=== PATIENT | male | born 1965 | race Caucasian/White ===

== ENCOUNTER 2020-04-09 02:18 | Outpatient (CLI) | payer OTHER, SELFPAY ==
[2020-04-09 17:03] LABS: SARS-CoV-2 RNA PCR Negative
== END 2020-04-09 02:19 | disposition home or self-care (01) ==
LOC: ANHCOVIDDT 02:19
PROVIDERS: PCP Internal Medicine; Visit Provider Internal Medicine Gastroenterology
DX: Z01.812 Encounter for preprocedural laboratory examination (principal); Z20.828 Contact with and (suspected) exposure to other viral communicable diseases
CPT/HCPCS: 87635; C9803; U0003

== ENCOUNTER 2020-04-11 00:33 | Day surgery (SDC) | payer OTHER, SELFPAY ==
[2020-04-05 11:50] VITALS: BMI 29.0
[2020-04-11 06:27] VITALS: BP 135/89; PULSE 53; RESP 18; TEMP 36.6; O2SAT 99
[2020-04-11] MEDS: LACTATED RINGERS 1,000 ML 150 ML IV CONT (06:38)
--- NOTE | 2020-04-11 06:57 | PM.HPGS ---
History of Present Illness History of Present Illness Consent: Risks, benefits, and alternatives have been discussed and questions answered. Patient agrees to proceed with procedure. Chief complaint: Neoplasm Screening Narrative: Camilo Issa is a 54 year old W male Referred for screening colonoscopy secondary to history of colonic polyps. Last colonoscopy was 3 years ago at which time several polyps were removed 1 was a serrated adenoma. Patient is asymptomatic. No family history of colon cancer. [facility] Past Medical History Medical History (Updated 04/11/20 @ 07:01 by Magdaleno Fink MD) Depression Dyslipidemia Fracture of finger of right hand Hypertension Sleep apnea Social History Social History Smoking status: Never smoker Alcohol intake: never Substance use: never Living arrangements: with friend(s) Spiritual care concerns: No Meds Home Medications and Allergies Home Medications Medication Instructions Recorded Confirmed Type aripiprazole 2 mg PO HS 04/05/20 04/11/20 History atorvastatin 10 mg PO HS 04/05/20 04/05/20 History escitalopram oxalate 20 mg PO DAILY 04/05/20 04/05/20 History fexofenadine-pseudoephedrine 1 tablet PO QAM 04/05/20 04/05/20 History [Alicia-D 24 Hour] labetalol 300 mg PO BID 04/05/20 04/05/20 History lisinopril 20 mg PO DAILY 04/05/20 04/05/20 History lithium carbonate 600 mg PO HS 04/05/20 04/05/20 History Allergies Allergy/AdvReac Type Severity Reaction Status Date / Time coconut Allergy Swelling Verified 04/11/20 06:22 of Lip/Tongue/Throat Vital Signs Vital Signs - 24 hr 04/11/20 06:27 Temperature 36.6 C Pulse Rate 53 L Respiratory Rate 18 Blood Pressure 135/89 Pulse Oximetry 99 Exam Const: Orientation/consciousness: patient oriented x3 Resp: Auscultation: clear to auscultation bilaterally Cardio: Rate: regular rate Rhythm: regular rhythm Heart sounds: no murmurs GI: GI Palp: Yes Soft to palpation, No Tenderness to palpation present (GI), Yes No hepatosplenomegaly present and No Palpable mass present Auscultation: normal bowel sounds Neuro: General: patient oriented x3 and no focal motor deficits Extrem: General: no pedal edema Assessment and Plan Additional Plan screening colonoscopy secondary history of colonic polyps
--- NOTE | 2020-04-11 07:15 | WPDANESEPPF ---
Anes - Initial Pre Proc Eval Procedure: Operation Date: 04/11/20 07:30 Proposed Procedures p Screening Colonoscopy - Magdaleno Fink MD Date/Time: 04/11/20 07:15 Surgeon: Magdaleno Fink MD Pre Op Diagnosis: Neoplasm Screening Patient Data Age: 54 Gender: M Height: 1.7 m Weight: 84.4 kg Last Vital Signs Temp 36.6 C 04/11/20 06:27 Pulse 53 L 04/11/20 06:27 Resp 18 04/11/20 06:27 BP 135/89 04/11/20 06:27 Pulse Ox 99 04/11/20 06:27 Allergies Allergy/AdvReac Type Severity Reaction Status Date / Time coconut Allergy Swelling Verified 04/11/20 06:22 of Lip/Tongue/Throat Home Medications Medication Instructions Recorded Confirmed Type aripiprazole 2 mg PO HS 04/05/20 04/11/20 History atorvastatin 10 mg PO HS 04/05/20 04/05/20 History escitalopram oxalate 20 mg PO DAILY 04/05/20 04/05/20 History fexofenadine-pseudoephedrine 1 tablet PO QAM 04/05/20 04/05/20 History [Alicia-D 24 Hour] labetalol 300 mg PO BID 04/05/20 04/05/20 History lisinopril 20 mg PO DAILY 04/05/20 04/05/20 History lithium carbonate 600 mg PO HS 04/05/20 04/05/20 History Patient hx anesthesia problems: none Family hx anesthesia problems: none [facility] Past Medical History Medical History (Updated 04/11/20 @ 07:16 by Fuad Larry MD) CVA (cerebral vascular accident) Depression Dyslipidemia Fracture of finger of right hand Hypertension Sleep apnea Social History Social History Smoking status: Never smoker Alcohol intake: never Substance use: never Living arrangements: with friend(s) Spiritual care concerns: No Anes - Eval Final PreProcedure Day of Procedure 04/11/20 07:15 Patient weight: overweight Heart: regular rate and rhythm Lungs: clear to auscultation and normal air movement Airway: Mallampati scale class II Neurological: alert and oriented Last oral intake: >/= 8 hours ASA classification: III Emergent: no Anesthetic plan: proceed Anesthesia type and monitoring: general GIVS Informed Consent: The patient's anesthetic plan and its attendant risks and benefits were discussed with the patient/family/POA. Questions were solicited and answers provided to the satisfaction of the patient/family/POA.
[2020-04-11 08:00] VITALS: BP 117/73; PULSE 64; RESP 16; O2SAT 99
[2020-04-11 08:10] VITALS: BP 107/76; PULSE 62; RESP 24; O2SAT 98
[2020-04-11 08:20] VITALS: BP 125/82; PULSE 62; RESP 20; O2SAT 98
== END 2020-04-11 08:47 | disposition home or self-care (01) ==
PROVIDERS: PCP Internal Medicine; Visit Provider Internal Medicine Gastroenterology
PROC: 0DJD8ZZ Inspection of Lower Intestinal Tract, Via Natural or Artificial Opening Endoscopic (ICD-10-PCS; CPT 45378; principal; 2020-04-11 07:30)
DX: Z12.11 Encounter for screening for malignant neoplasm of colon (principal); K63.5 Polyp of colon; K64.0 First degree hemorrhoids; K64.4 Residual hemorrhoidal skin tags; I10 Essential (primary) hypertension; E78.5 Hyperlipidemia, unspecified; G47.30 Sleep apnea, unspecified; F32.9 Major depressive disorder, single episode, unspecified; Z86.73 Personal history of transient ischemic attack (TIA), and cerebral infarction without residual deficits
CPT/HCPCS: 45380; 87635; 88305; C9803; J2704; J7120; U0003

== ENCOUNTER 2023-10-06 13:03 | Outpatient (CLI) | payer OTHER, SELFPAY ==
--- NOTE | 2023-10-06 14:30 | NEURO_ITS ---
Impression: # Complains of numbness of hands. Non-diabetic. # Bilateral Carpal Tunnel Syndrome, right more than left. # No ulnar neuropathy. # Normal needle/EMG exam. Nerve Conduction Studies Anti Sensory Summary Table Stim Site NR Peak (ms) P-T Amp (?V) Site1 Site2 Delta-P (ms) Dist (cm) Sky (m/s) Left Median Anti Sensory (2-3nd Digit) Wrist 3.5 41.7 Wrist 2-3nd Digit 3.5 14.0 40 Wrist 3.5 41.6 Wrist 2-3nd Digit 3.5 14.0 40 Right Median Anti Sensory (2-3nd Digit) Wrist 3.5 40.6 Wrist 2-3nd Digit 3.5 14.0 40 Wrist 3.4 28.9 Wrist 2-3nd Digit 3.5 14.0 40 Left Radial Anti Sensory (Base 1st Digit) Wrist 2.2 20.6 Wrist Base 1st Digit 2.2 0.0 Right Radial Anti Sensory (Base 1st Digit) Wrist 2.8 13.7 Wrist Base 1st Digit 2.8 0.0 Left Ulnar Anti Sensory (5th Digit) Wrist 2.3 72.5 Wrist 5th Digit 2.3 14.0 61 Right Ulnar Anti Sensory (5th Digit) Wrist 2.2 49.2 Wrist 5th Digit 2.2 14.0 64 Motor Summary Table Stim Site NR Onset (ms) O-P Amp (mV) Site1 Site2 Delta-0 (ms) Dist (cm) Sky (m/s) Left Median Motor (Abd Poll Brev) Wrist 3.4 4.3 Elbow Wrist 5.0 30.0 60 Elbow 8.4 6.1 Right Median Motor (Abd Poll Brev) Wrist 4.1 1.3 Elbow Wrist 5.1 29.0 57 Elbow 9.2 3.9 Left Ulnar Motor (Abd Dig Minimi) Wrist 2.3 6.4 A Elbow Wrist 4.6 27.0 59 A Elbow 6.9 6.0 Right Ulnar Motor (Abd Dig Minimi) Wrist 2.7 7.8 A Elbow Wrist 5.1 29.0 57 A Elbow 7.8 6.2 F Wave Studies NR F-Lat (ms) L-R F-Lat (ms) Left Median (Mrkrs) (Abd Poll Brev) 27.14 1.81 Right Median (Mrkrs) (Abd Poll Brev) 28.95 1.81 Left Ulnar (Mrkrs) (Abd Dig Min) 27.50 0.19 Right Ulnar (Mrkrs) (Abd Dig Min) 27.31 0.19 EMG Side Muscle Nerve Root Ins Act Fibs Amp Dur Recrt Comment Right 1stDorInt Ulnar C8-T1 Nml Nml Nml Nml Nml Right Ext Indicis Radial (Post Int) C7-8 Nml Nml Nml Nml Nml Right Ext Digitorum Radial (Post Int) C7-8 Nml Nml Nml Nml Nml Right BrachioRad Radial C5-6 Nml Nml Nml Nml Nml Right PronatorTeres Median C6-7 Nml Nml Nml Nml Nml Right Abd Poll Brev Median C8-T1 Nml Nml Nml Nml Nml Right ABD Dig Min Ulnar C8-T1 Nml Nml Nml Nml Nml Left 1stDorInt Ulnar C8-T1 Nml Nml Nml Nml Nml Left Ext Indicis Radial (Post Int) C7-8 Nml Nml Nml Nml Nml Left Ext Digitorum Radial (Post Int) C7-8 Nml Nml Nml Nml Nml Left BrachioRad Radial C5-6 Nml Nml Nml Nml Nml Left PronatorTeres Median C6-7 Nml Nml Nml Nml Nml Left Abd Poll Brev Median C8-T1 Nml Nml Nml Nml Nml Left ABD Dig Min Ulnar C8-T1 Nml Nml Nml Nml Nml MTDD
== END 2023-10-06 13:04 | disposition home or self-care (01) ==
PROVIDERS: PCP Internal Medicine; Visit Provider Internal Medicine
DX: G56.03 Carpal tunnel syndrome, bilateral upper limbs (principal)
CPT/HCPCS: 95886; 95911

== ENCOUNTER 2024-01-28 12:34 | Outpatient (CLI) | payer OTHER, SELFPAY ==
[2024-01-28 16:09] LABS: Lithium 0.6 mmol/L (0.6-1.2)
== END 2024-01-28 12:35 | disposition home or self-care (01) ==
PROVIDERS: Anesthesiology; PCP Internal Medicine; Visit Provider Plastic Surgery
DX: Z79.899 Other long term (current) drug therapy (principal); Z01.818 Encounter for other preprocedural examination
CPT/HCPCS: 36415; 80178

== ENCOUNTER 2024-02-02 02:59 | Day surgery (SDC) | payer OTHER, SELFPAY ==
[2023-12-31 09:37] VITALS: BMI 28.2
--- NOTE | 2023-12-31 10:37 | PC.NURSE ---
Report to the Outpatient Waiting Room, entrance under the green pavilion located off [facility], at time _0615_ on date _[id number]_. Planned Procedure Time: _0815_. Time changes happen often and if your time is changed the preop area will call you the afternoon before. - You and your visitor will be asked to self-screen and do not enter if you have any COVID symptoms. - A mask is optional within the hospital at this time. - No food or drink from midnight until time of surgery Take the following medications with a SIP of water the morning of surgery: ____Escitalopram and Labetalol DO NOT STOP ANY OF YOUR OTHER PRESCRIPTION MEDICATIONS PRIOR TO SURGERY ?EXCEPT THE FOLLOWING Medications to discontinue per physician None Date to take last dose Please no make-up, nail cape verdean, hairspray, perfume, deodorant, or body powder the day of surgery. No jewelry (including any body piercings) or valuables the day of surgery, leave them at home. Please take a shower or bath the night before, or the morning of, surgery with an antibacterial soap. Wear comfortable, loose fitting clothing. - Jewelry must be removed prior to entering the operating room. Rings and piercings that are not removed may be cut off. - The hospital will not accept responsibility for valuables. - Please leave all valuables, including medications, at home the day of surgery. If you are going home after surgery, a licensed special events driver must drive you home. - NO public transportation without another adult if you receive anesthesia. - We recommend that an adult stay with you for 24 hours following discharge. - We also recommend that you do not drive, make important decision, drink alcoholic beverages, or take any drugs that were not prescribed by your health care provider for at least 24 hours after your discharge time. Follow any additional instructions given to you from your surgeon. If you or anyone in your household have experienced Covid symptoms in the past week, please notify your surgeon or the nurse liaison at the phone number below for possible testing. Telephone instructions given to _Chris__and asked if any additional questions and then verbalized understanding. Patient advised to call surgeon office or pre surgery nurse liaison [phone] if any additional questions.
--- NOTE | 2024-01-26 15:40 | PC.NURSE ---
Report to the Outpatient Waiting Room, entrance under the green pavilion located off [facility], at time _0600_ on date _[id number]_. Planned Procedure Time: _0730_. Time changes happen often and if your time is changed the preop area will call you the afternoon before. - You and your visitor will be asked to self-screen and do not enter if you have any COVID symptoms. - A mask is optional within the hospital at this time. - No food or drink from midnight until time of surgery Take the following medications with a SIP of water the morning of surgery: ____Escitalopram and Labetolol DO NOT STOP ANY OF YOUR OTHER PRESCRIPTION MEDICATIONS PRIOR TO SURGERY ?EXCEPT THE FOLLOWING Medications to discontinue per physician None Date to take last dose Please no make-up, nail maltese, hairspray, perfume, deodorant, or body powder the day of surgery. No jewelry (including any body piercings) or valuables the day of surgery, leave them at home. Please take a shower or bath the night before, or the morning of, surgery with an antibacterial soap. Wear comfortable, loose fitting clothing. - Jewelry must be removed prior to entering the operating room. Rings and piercings that are not removed may be cut off. - The hospital will not accept responsibility for valuables. - Please leave all valuables, including medications, at home the day of surgery. If you are going home after surgery, a licensed auto transport driver must drive you home. - NO public transportation without another adult if you receive anesthesia. - We recommend that an adult stay with you for 24 hours following discharge. - We also recommend that you do not drive, make important decision, drink alcoholic beverages, or take any drugs that were not prescribed by your health care provider for at least 24 hours after your discharge time. Follow any additional instructions given to you from your surgeon. If you or anyone in your household have experienced Covid symptoms in the past week, please notify your surgeon or the nurse liaison at the phone number below for possible testing. Telephone instructions given to __Chris____and asked if any additional questions and then verbalized understanding. Patient advised to call surgeon office or pre surgery nurse liaison [phone] if any additional questions.
[2024-02-02 06:12] VITALS: BP 124/79; PULSE 63; RESP 18; TEMP 36.3; O2SAT 96
[2024-02-02] MEDS: LACTATED RINGERS 1,000 ML 30 ML IV CONT (06:20)
--- NOTE | 2024-02-02 06:45 | PM.HPGS ---
History of Present Illness History of Present Illness Chief complaint: right carpal tunnel syndrome Narrative: Patient seen and examined in pre-operative holding area. No interval change in medical history or symptoms. Patient recalls previous discussion of benefits and alternatives to procedure. Continues to desire to proceed with right endoscopic possible open carpal tunnel release. Reviewed procedure, post-op expectations and risks including but not limited to bleeding, infection, injury to tendon/nerve/vessel, decreased hand function, stiffness, RSD, no change or worsening of symptoms. I discussed the possible use of assistants and their participation in the case. Patient stated understanding and signed the consent form wishing to proceed. Review of Systems Review of Systems: All systems reviewed & are unremarkable except as noted in HPI and below PMFSH Past Medical History Medical History CVA (cerebral vascular accident) Depression Dyslipidemia Fracture of finger of right hand Hypertension Sleep apnea Social History Social History Smoking status: Never smoker Alcohol intake: never Substance use: never Living arrangements: with family Spiritual care concerns: No Meds Home Medications and Allergies Home Medications Medication Instructions Recorded Confirmed Type aripiprazole 2 mg tablet 2 mg PO HS 04/05/20 02/02/24 History atorvastatin 10 mg tablet 10 mg PO HS 04/05/20 02/02/24 History escitalopram oxalate 20 mg tablet 20 mg PO DAILY 04/05/20 02/02/24 History fexofenadine-pseudoephedrine ER 1 tablet PO QAM 04/05/20 02/02/24 History 180 mg-240 mg tablet,ext.release 24 hr (Alicia-D 24 Hour) labetalol 300 mg tablet 300 mg PO BID 04/05/20 02/02/24 History lithium carbonate 300 mg tablet 600 mg PO HS 04/05/20 02/02/24 History Allergies Allergy/AdvReac Type Severity Reaction Status Date / Time coconut Allergy Swelling Verified 02/02/24 06:23 of Lip/Tongue/Throat Vital Signs Vital Signs - 24 hr 02/02/24 06:12 Temperature 36.3 C L Pulse Rate 63 Respiratory Rate 18 Blood Pressure 124/79 Pulse Oximetry 96 Oxygen Delivery Room Air Exam Narrative: unchnaged Assessment and Plan Assessment and plan (1) Bilateral carpal tunnel syndrome: Code(s): G56.03 - Carpal tunnel syndrome, bilateral upper limbs Status: Acute Assessment and Plan: cont as above
--- NOTE | 2024-02-02 06:46 | W.PM.PROC2 ---
Procedure Note - Detailed Date of Procedure 02/02/24 Pre-op Diagnosis right carpal tunnel syndrome Post-op Diagnosis Same Procedure Performed right ectr Surgeon Vivian Gramajo MD Anesthesia MAC Description of Procedure INFORMED CONSENT: The patient was seen and examined and marked in the pre-op area.? The patient signed the consent form. PROCEDURE IN DETAIL:The patient taken back to OR on the stretcher in supine position. Time out performed with anesthesia, surgeon and staff agreeing on patient's name site and surgery to be performed SCDs were placed on the lower extremities and inflated. A tourniquet was placed on {right} upper extremity and antibiotics given IV After anesthesia administered sedation I injected {5}cc 1%lido with epi and 0.5% marcaine plain at the operative site The?{right upper extremity}?was prepped and draped in sterile fashion the??{right upper extremity} was? exsanguinated with Esmarch bandage and tourniquet inflated to 250mmHg I made a transverse incision in the {right} volar distal wrist crease through skin and dermis with 15 blade scalpel.? Littler scissors spread down to antebrachial fascia. A small incision was made in antebrachial fascia allowing access to Carpal tunnel. I proceeded with sequential dilation staying in line with the ring finger and hugging the hook of the hamate.? I then used the synovial elevator to free any adhesions from the underside of the transverse carpal ligament. Next I was able to insert the Microaire endoscopic carpal tunnel device with direct visualization of the transverse fibers on the monitor and proceeded with complete segmental retrograde release of the ligament in its entirety.? I irrigated with normal saline and closed with 4-0 monocryl for dermis and subcuticular closure. A dressing of Dermabond, 4x4, gala, and a volar splint was applied for patient safety, security, and comfort and secured with an alejandro bandage after the tourniquet was let down noting the hand was warm and well perfused. The patient was then awaken from anesthesia and transferred to the recovery room in stable condition.? Complications - none EBL- 0cc Disposition - home in stable conditions AM Billing Surgery - Charge Forward: Surgery Billing ([id number])
--- NOTE | 2024-02-02 07:07 | P.PNAN_ITS ---
Anes - Initial Pre Proc Eval Procedure: Operation Date: 02/02/24 07:30 Proposed Procedures p Right Endoscopic Carpal Tunnel Release, Possible Open - Vivian Gramajo MD Date/Time: 02/02/24 07:07 Surgeon: Vivian Gramajo MD Pre Op Diagnosis: right carpal tunnel syndrome Patient Data Age: 58 Gender: M Height: 1.7 m Weight: 83.9 kg Last Vital Signs Temp 36.3 C L 02/02/24 06:12 Pulse 63 02/02/24 06:12 Resp 18 02/02/24 06:12 BP 124/79 02/02/24 06:12 Pulse Ox 96 02/02/24 06:12 O2 Del Method Room Air 02/02/24 06:12 Allergies Allergy/AdvReac Type Severity Reaction Status Date / Time coconut Allergy Swelling Verified 02/02/24 06:23 of Lip/Tongue/Throat Home Medications Medication Instructions Recorded Confirmed Type aripiprazole 2 mg tablet 2 mg PO HS 04/05/20 02/02/24 History atorvastatin 10 mg tablet 10 mg PO HS 04/05/20 02/02/24 History escitalopram oxalate 20 mg tablet 20 mg PO DAILY 04/05/20 02/02/24 History fexofenadine-pseudoephedrine ER 1 tablet PO QAM 04/05/20 02/02/24 History 180 mg-240 mg tablet,ext.release 24 hr (Alicia-D 24 Hour) labetalol 300 mg tablet 300 mg PO BID 04/05/20 02/02/24 History lithium carbonate 300 mg tablet 600 mg PO HS 04/05/20 02/02/24 History Patient hx anesthesia problems: none Family hx anesthesia problems: none Results Review: All pre-operative results and documents have been reviewed as part of the pre- operative evaluation. [facility] Past Medical History Medical History CVA (cerebral vascular accident) Depression Dyslipidemia Fracture of finger of right hand Hypertension Sleep apnea Social History Social History Smoking status: Never smoker Alcohol intake: never Substance use: never Living arrangements: with family Spiritual care concerns: No Anes - Eval Final PreProcedure Day of Procedure 02/02/24 07:07 Patient weight: overweight Heart: regular rate and rhythm Lungs: clear to auscultation Airway: Mallampati scale class II Neurological: alert and oriented Last oral intake: >/= 8 hours ASA classification: III Emergent: no Anesthetic plan: proceed Anesthesia type and monitoring: general GIVS and standard monitoring Results Review: All pre-operative results and documents have been reviewed as part of the pre- operative evaluation. Informed Consent: The patient's anesthetic plan and its attendant risks and benefits were discussed with the patient/family/POA. Questions were solicited and answers provided to the satisfaction of the patient/family/POA.
[2024-02-02] MEDS: ceFAZolin 2 GM/D5W 50 ML 2 GM/50 ML BAG IVPB (07:25)
[2024-02-02] MEDS: LIDO 1%/EPINEPHRINE 1:100,000 50 ML VIAL 10 ML INFILTRATE (07:31)
[2024-02-02 07:45] VITALS: BP 108/73; PULSE 67; RESP 14; O2SAT 93
[2024-02-02 08:10] VITALS: BP 107/72; PULSE 63; RESP 14; O2SAT 94
[2024-02-02 08:40] VITALS: BP 106/74; PULSE 56; RESP 16
== END 2024-02-02 08:56 | disposition home or self-care (01) ==
PROVIDERS: PCP Internal Medicine; Visit Provider Plastic Surgery
PROC: 01N54ZZ Release Median Nerve, Percutaneous Endoscopic Approach (ICD-10-PCS; CPT 29848; principal; 2024-02-02 07:30)
DX: G56.01 Carpal tunnel syndrome, right upper limb (principal); I10 Essential (primary) hypertension; E78.5 Hyperlipidemia, unspecified; G47.30 Sleep apnea, unspecified; Z86.73 Personal history of transient ischemic attack (TIA), and cerebral infarction without residual deficits
CPT/HCPCS: 29848; 36415; 80178; J0690; J2250; J2405; J3010; J7120

== ENCOUNTER 2024-04-22 09:16 | Outpatient (CLI) | payer OTHER, SELFPAY ==
--- NOTE | 2024-04-22 09:31 | ECG_ITS ---
Test Date: 2024-04-22 09:43:26 Measurements Intervals [place] Rate: 57 P: 11 UT: 150 QRS: 11 QRSD: 99 T: 26 QT: 469 QTc: 458 Interpretive Statements SINUS BRADYCARDIA INCOMPLETE RIGHT BUNDLE BRANCH BLOCK BASELINE ARTIFACT- II, III, AVR, AVF BORDERLINE ECG No previous ECG available for comparison Electronically Signed On 04-22-2024 10:04:19 CDT by Donald Dukes D.O.
== END 2024-04-22 09:17 | disposition home or self-care (01) ==
PROVIDERS: PCP Internal Medicine; Visit Provider Anesthesiology
DX: Z01.810 Encounter for preprocedural cardiovascular examination (principal); I45.10 Unspecified right bundle-branch block; I10 Essential (primary) hypertension
CPT/HCPCS: 93005

== ENCOUNTER 2024-04-26 02:54 | Day surgery (SDC) | payer OTHER, SELFPAY ==
[2024-04-21 10:57] VITALS: BMI 28.7
--- NOTE | 2024-04-21 11:01 | PC.NURSE ---
Report to the Outpatient Waiting Room, entrance under the green pavilion located off [facility], at time _0615_ on date _[id number]_. Planned Procedure Time: _0815_.? Time changes happen often and if your time is changed the preop area will call you the afternoon before. - You and your visitor will be asked to self-screen and do not enter if you have any COVID symptoms. Please call surgeon if you need to reschedule. - A mask is optional within the hospital at this time. - No food or drink from midnight until time of surgery and no smoking Take only the following medications with a SIP of water on the morning of surgery: ___Amlodipine, Bupropion, Labetolol and Escitalopram___ DO NOT STOP ANY OF YOUR OTHER PRESCRIPTION MEDICATIONS PRIOR TO SURGERY EXCEPT THE FOLLOWING Medications to discontinue per physician ____None___ Please no make-up, nail moroccan, hairspray, perfume, deodorant, or body powder the day of surgery.? No jewelry (including any body piercings) or valuables the day of surgery, leave them at home.? Please take a shower or bath the night before, or the morning of, surgery with an antibacterial soap.? Wear comfortable, loose fitting clothing.? - Jewelry must be removed prior to entering the operating room.? Rings and piercings that are not removed may be cut off. - The hospital will not accept responsibility for valuables.? - Please leave all valuables, including medications, at home the day of surgery. If you are going home after surgery, a licensed hog driver must drive you home.? - NO public transportation without another adult if you receive anesthesia. - We recommend that an adult stay with you for 24 hours following discharge. - We also recommend that you do not drive, make important decision, drink alcoholic beverages, or take any drugs that were not prescribed by your health care provider for at least 24 hours after your discharge time. Follow any additional instructions given to you from your surgeon. Telephone instructions given to _Yo__and asked if any additional questions and then verbalized understanding. Patient advised to call surgeon office or pre surgery nurse liaison [phone] if any additional questions.
[2024-04-26 06:45] VITALS: BP 122/85; PULSE 57; RESP 16; TEMP 36.4; O2SAT 96
[2024-04-26] MEDS: LACTATED RINGERS 1,000 ML 30 ML IV CONT (06:45)
--- NOTE | 2024-04-26 07:04 | WPDANESEPPF ---
Anes - Initial Pre Proc Eval Procedure: Operation Date: 04/26/24 08:15 Proposed Procedures p Left Endoscopic Carpal Tunnel Release, Possible Open - Vivian Gramajo MD Date/Time: 04/26/24 07:04 Surgeon: Vivian Gramajo MD Pre Op Diagnosis: Left Carpal Tunnel Syndrome Patient Data Age: 58 Gender: M Height: 1.7 m Weight: 83.2 kg Allergies Allergy/AdvReac Type Severity Reaction Status Date / Time coconut Allergy Swelling Verified 04/21/24 10:53 of Lip/Tongue/Throat Home Medications Medication Instructions Recorded Confirmed Type atorvastatin 10 mg tablet 10 mg PO HS 04/05/20 04/21/24 History escitalopram oxalate 20 mg tablet 20 mg PO DAILY 04/05/20 04/21/24 History fexofenadine-pseudoephedrine ER 1 tablet PO QAM 04/05/20 04/21/24 History 180 mg-240 mg tablet,ext.release 24 hr (Alicia-D 24 Hour) labetalol 300 mg tablet 300 mg PO BID 04/05/20 04/21/24 History lithium carbonate 300 mg tablet 600 mg PO HS 04/05/20 04/21/24 History tramadol 50 mg tablet 50 mg PO Q6H PRN pain #14 tabs 02/02/24 04/21/24 Rx amlodipine 5 mg tablet 5 mg PO DAILY 04/21/24 04/21/24 History bupropion HCl 300 mg 24 hr tablet, 300 mg PO DAILY 04/21/24 04/21/24 History extended release Patient hx anesthesia problems: none Family hx anesthesia problems: none Results Review: All pre-operative results and documents have been reviewed as part of the pre-operative evaluation. [facility] Past Medical History Medical History CVA (cerebral vascular accident) Depression Dyslipidemia Fracture of finger of right hand Hypertension Sleep apnea Surgical History Surgical History (Updated 04/26/24 @ 07:04 by Ranulfo Arora MD) History of carpal tunnel surgery Social History Social History Smoking status: Never smoker Alcohol intake: never Substance use: never Living arrangements: with family Spiritual care concerns: No Anes - Eval Final PreProcedure Day of Procedure 04/26/24 07:04 Patient weight: overweight Heart: regular rate and rhythm Lungs: clear to auscultation Airway: Mallampati scale class II Neurological: alert and oriented Last oral intake: >/= 8 hours ASA classification: III Emergent: no Anesthetic plan: proceed Anesthesia type and monitoring: general GIVS and standard monitoring Results Review: All pre-operative results and documents have been reviewed as part of the pre-operative evaluation. Informed Consent: The patient's anesthetic plan and its attendant risks and benefits were discussed with the patient/family/POA. Questions were solicited and answers provided to the satisfaction of the patient/family/POA.
--- NOTE | 2024-04-26 07:04 | WPDHPUPDATE1 ---
History and Physical Update Update Date/Time: 04/26/24 07:04 Patient seen and examined in pre-operative holding area. No interval change in medical history or symptoms. Patient recalls previous discussion of benefits and alternatives to procedure. Continues to desire to proceed with left endoscopic possible open carpal tunnel release . Reviewed procedure, post-op expectations and risks including but not limited to bleeding, infection, injury to tendon/nerve/vessel, decreased hand function, stiffness, RSD, no change or worsening of symptoms. I discussed the possible use of assistants and their participation in the case. Patient stated understanding and signed the consent form wishing to proceed.
--- NOTE | 2024-04-26 07:05 | W.PM.PROC2 ---
Procedure Note - Detailed Date of Procedure 04/26/24 Pre-op Diagnosis Left Carpal Tunnel Syndrome Post-op Diagnosis Same Procedure Performed left ectr Surgeon Vivian Gramajo MD Community Outreach Advocate kameron mendiola pa-c Anesthesia MAC Description of Procedure INFORMED CONSENT: The patient was seen and examined and marked in the pre-op area.? The patient signed the consent form. PROCEDURE IN DETAIL:The patient taken back to OR on the stretcher in supine position. Time out performed with anesthesia, surgeon and staff agreeing on patient's name site and surgery to be performed SCDs were placed on the lower extremities and inflated. A tourniquet was placed on left} upper extremity and antibiotics given IV After anesthesia administered sedation I injected {5}cc 1%lido with epi and 0.5% marcaine plain at the operative site The?{left upper extremity}?was prepped and draped in sterile fashion the??{left upper extremity} was? exsanguinated with Esmarch bandage and tourniquet inflated to 250mmHg I made a transverse incision in the {left} volar distal wrist crease through skin and dermis with 15 blade scalpel.? Littler scissors spread down to antebrachial fascia. A small incision was made in antebrachial fascia allowing access to Carpal tunnel. I proceeded with sequential dilation staying in line with the ring finger and hugging the hook of the hamate.? I then used the synovial elevator to free any adhesions from the underside of the transverse carpal ligament. Next I was able to insert the Microaire endoscopic carpal tunnel device with direct visualization of the transverse fibers on the monitor and proceeded with complete segmental retrograde release of the ligament in its entirety.? I irrigated with normal saline and closed with 4-0 monocryl for dermis and subcuticular closure. A dressing of Dermabond, 4x4, gala, and a volar splint was applied for patient safety, security, and comfort and secured with an alejandro bandage after the tourniquet was let down noting the hand was warm and well perfused. The patient was then awaken from anesthesia and transferred to the recovery room in stable condition.? Complications - none EBL- 0cc Disposition - home in stable conditions Kameron Mendiola PA-C was essential for positioining, retraction, closure and dressing placement [facility] [place] Billing Surgery - Charge Forward: Surgery Billing ([id number] for kameron)
[2024-04-26] MEDS: LIDO 1%/EPINEPHRINE 1:100,000 50 ML VIAL 10 ML INFILTRATE (08:02)
[2024-04-26] MEDS: ceFAZolin 2 GM/D5W 50 ML 2 GM/50 ML BAG IVPB (08:08)
[2024-04-26 08:32] VITALS: BP 98/63; PULSE 59; RESP 14
[2024-04-26 09:00] VITALS: BP 97/67; PULSE 57; RESP 20
[2024-04-26 09:14] VITALS: BP 107/73; PULSE 59; RESP 20
== END 2024-04-26 09:24 | disposition home or self-care (01) ==
PROVIDERS: PCP Internal Medicine; Visit Provider Plastic Surgery
PROC: 01N54ZZ Release Median Nerve, Percutaneous Endoscopic Approach (ICD-10-PCS; CPT 29848; principal; 2024-04-26 08:15)
DX: G56.02 Carpal tunnel syndrome, left upper limb (principal); E78.5 Hyperlipidemia, unspecified; I10 Essential (primary) hypertension; G47.30 Sleep apnea, unspecified; F32.A Depression, unspecified; Z86.73 Personal history of transient ischemic attack (TIA), and cerebral infarction without residual deficits
CPT/HCPCS: 29848; 93005; J0690; J2704; J3010; J7120

== ENCOUNTER 2025-01-02 04:59 | Emergency (ER) | payer OTHER, SELFPAY ==
[2025-01-02] VITALS (11 sets, daily range): BP systolic 140–156; BP diastolic 87–105; PULSE 77; RESP 16; TEMP 37.1; O2SAT 94–96
--- OUTSIDE RECORDS SUMMARY | 2025-01-02 05:02 | XMS_ITS | Clinical Summary ---
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 Gender Identity Not on file Sexual Orientation Not on file Plan of Treatment Health Maintenance Due Date Last Done Comments Hepatitis C Virus (HCV) Screening 1966 TdaP Immunization 1966 Hepatitis B Immunization (1 of 3 - 19+ 3-dose series) 1985 Colonoscopy 12/19/2011 Colorectal Cancer Screening 12/19/2011 Cologuard 2016 Immunochemical Fecal Occult Blood 2016 Pneumococcal Immunization (5 0+ years) (1 of 1 - PCV) 2016 Zoster Immunization (1 of 2) 2016 PSA Discussion 2021 Influenza Immunization (#1) 2024 SARS-COV-2 Immunization ( season) 2024 07/31/2021, 12/07/2020, 11/15/2020 Respiratory Syncytial Virus (RSV) Immunization (Adult) (1 - 1-dose 75+ series) 2041 Meningococcal Immunization (ACWY) Aged Out No longer eligible b ased on patient's age to complete this topic Pneumococcal Immunization Combined Aged Out No longer eligible b ased on patient's age to complete this topic Rotavirus Immunization Aged Out No lo nger eligible based on patient's age to complete this topic
--- OUTSIDE RECORDS SUMMARY | 2025-01-02 05:02 | XMS_ITS | CONTINUITY OF CARE DOCUMENT ---
Author Name ethan long Address Unknown Organization [facility] Address [address] [address] [place] [address] Phone [phone] Care Team Providers Care Office Manager Receptionist Name Role Phone ethan long Unavailable Unavailable
--- OUTSIDE RECORDS SUMMARY | 2025-01-02 05:02 | XMS_ITS | Referral Summary ---
Author Organization [facility] Address [address] [place] [address] Care Team Providers Care Professional Athlete Name Role Phone Clarence Mortensen MD Primary Care Provider Yuniel Santiago MD, Lewis Unavailable [phone] Allergies Active Allergy Reactions Criticality Noted Date Comments Coconut Other (See comments) Low 04/01/2021 Throat swelling Dairy - All Forms And Ingredients Diarrhea Low 04/01/2021 Not all dairy products Medications buPROPion XL (WELLBUTRIN XL) 300 mg 24 hr tablet Take 300 mg by mouth every morning 02/20/2021 Active lisinopriL (PRINIVIL,ZESTR IL) 20 mg tablet Take 20 mg by mouth daily 03/13/2021 Active lithium ER (LITHOBID) 300 mg CR tablet Take 600 mg by mouth nightly 02/20/2021 Active propranoloL (INDERAL) 10 mg tablet Take 10 mg by mouth 2 (two) times a day 02/27/2021 Active escitalopram (LEXAPRO) 20 mg tablet Take 20 mg by mouth daily 02/20/2021 Active atorvastatin (LIPITOR) 10 mg tablet Take 10 mg by mouth daily 03/13/2021 Active labetaloL (NORMODYNE,SCHAEFER DATE) 300 mg tablet Take 300 mg by mouth 2 (two) times a day 01/31/2021 Active fexofenadine (MARINA) 180 mg tablet Marina Allergy 180 mg tablet Take 1 tablet every day by oral route. 09/20/2013 Active Active Problems Problem Noted Date Diagnosed Date Thrombocytopenia, unspecified 03/27/2021 Immunizations Immunization Administration Dates Next Due Sars-CoV-2, Unspecified 01/02/2021,12/02/2020 Social History Tobacco Use Types Packs/Day Years Used Date Smoking Tobacco: Never Smokeless Tobacco: Never AUDIT-C Answer Date Recorded Q1: How often do you have a drink containing alc ohol? Monthly or less 10/13/2021 Q2: How many drinks containi ng alcohol do you have on a typical day when you are drinking? 1 or 2 10/13/2021 Q3: How often do you have si x or more drinks on one occasion? Never 10/13/2021 Personal Safety Answer Date Recorded Getting School Help Needed Not on file 10/16 Sex and Gender Information Value Date Recorded Sex Assigned at Not on file Legal Sex Male 12:14 PM CDT Gender Identity Not on file Sexual Orientation Not on file Last Filed Vital Signs Vital Sign Reading Time Taken Comments Blood Pressure 127/78 10/13/2021 11:36 AM CDT Pulse 54 10/13/2021 11:36 AM CDT Temperature 36.6 C (97.9 F) 10/13/2021 11:36 AM CDT Respiratory Rate 16 10/13/2021 11:36 AM CDT Oxygen Saturation 99% 10/13/2021 11:36 AM CDT Inhaled Oxygen Concentration - - Weight 83.1 kg (183 lb 3.2 oz) 10/13/2021 11:36 AM CDT Height 168.9 cm (5' 6.5) 10/13/2021 11:36 AM CD T Body Mass Index 29.13 10/13/2021 11:36 AM CDT Plan of Treatment Not on file Insurance [facility] [employer] PL[facility] Care Teams Professional Athlete Relationship Specialty Start Date End Date Clarence Mortensen MD [address] [facility] [address] [address] PCP - General Internal Medicine 03/17/21 Lewis Brice Jr., MD [address] [facility] [address] [place] [address] Medical Oncologist/Forging Machine Hand Medical Oncology 03/27/21
--- OUTSIDE RECORDS SUMMARY | 2025-01-02 05:02 | XMS_ITS | Clinical Summary ---
Author Organization [facility] Address [address] [place] [id number] Care Team Providers Care Makeup Sales Advisor Name Role Phone Clarence Mortensen MD Primary Care Provider Yuniel Santiago MD, Lewis Unavailable [phone] Allergies Active Allergy Reactions Criticality Noted Date [...] Administration Dates Next Due Sars-CoV-2, Unspecified 01/02/2021,12/02/2020 Surgical History Surgery Date Site/Laterality Comments COLONOSCOPY Medical History Medical History Date Comments Hypertension Hypercholesteremia Depression Stroke (HCC) Family History Medical History Relation Name Comments Breast cancer Sister Relation Name Status Comments Father Alive Mother Alive Sister Alive Social History Tobacco Use Types Packs/Day Years [...] on file Sexual Orientation Not on file Obstetrics History Last Filed Vital Signs Vital Sign Reading [...] 10/13/2021 11:36 AM CDT Plan of Treatment Health Maintenance Due Date Last Done Comments Colon Cancer Screening-Colonoscopy 1966 Depression Screening 1966 Hepatitis C Screening 1966 Prostate Cancer Screening-PSA 1966 DTaP/Tdap/Td Vaccine (1 - Tdap) 1977 Hepatitis B Screening 1984 Regular Well Visit/Exam 18-64 1984 Zoster Vaccine (1 of 2) 2016 Covid-19 Vaccine ( season) 2024 07/29/2021, 01/02/2021, 12/07/2020, Additional history exists Influenza Vaccine (Season Ended) 2025 Pneumococcal vaccine <65 Aged Out No longer eligible based on patient's age to complete this topic Insurance [facility] Address: [place] [address] [facility] Address: [place] [address] Care Teams Makeup Sales Advisor Relationship Specialty Start Date End Date Clarence Mortensen MD [address] [facility] [address] [address] PCP - General Internal Medicine 03/17/21 Lewis Brice Jr., MD [address] [facility] [place] [address] Medical Oncologist/Beaming Machine Operator Medical Oncology 03/27/21
--- OUTSIDE RECORDS SUMMARY | 2025-01-02 05:02 | XMS_ITS | Data Portability ---
Author Organization [facility], Main Office Address [address] [place] [address] Assessment No assessment recorded. Plan of Treatment Reminders Order Date Submit Date Provider Last Modified By Organization Details Last Modified Time Details Appointments None recorded . Lab lipid panel, serum 025 08/16/[id number] [place] [address] Outpatient Lab, [address] [place] [address], [address], 5 16:33:42 CMP, serum or plasma 025 08/16/[id number] [place] [address] Outpatient Lab, [address] [place], [address], 5 16:33:42 TSH, serum or plasma 025 08/16/[id number] [place] [address] Outpatient Lab, [address] [place] [address], [address], 5 16:33:43 T4, free, serum 025 08/16/[id number] [place] [address] Outpatient Lab, [address] [place], [address], 5 16:33:43 CBC w/ auto diff 025 08/16/[id number] [place] [address] Outpatient Lab, [address] [place], [address], 5 16:33:42 PSA, serum or plasma 024 02/09/20 24 TG [facility] Outpatient Lab, [address] [place], [address], 4 03:01:53 lipid panel, serum 024 08/05/19 24 [facility] Outpatient Lab, [address] [place], [address], 4 00:39:36 CMP, serum or plasma 024 08/05/19 24 [facility] Outpatient Lab, [address] [place], [address], 4 00:39:37 PSA, serum or plasma 023 02/12/[id number] Outpatient Lab, [address] [place], [address], 3 15:32:20 CBC w/ auto diff 023 02/12/[id number] [place] [address] Outpatient Lab, [address] [place], [address], 3 15:32:19 CMP, serum or plasma 023 02/12/[id number] [place] [address] Outpatient Lab, [address] [place], [address], 3 15:32:20 lipid panel, serum 023 02/12/20 23 [facility] Outpatient Lab, [address] [place], [address], 3 13:01:08 TSH, serum or plasma 023 02/12/[email or web address] [place] [address] Outpatient Lab, [address] [place], [address], 3 15:32:20 T4, free, serum 023 02/12/[email or web address] [place] [address] Outpatient Lab, [address] [place], [address], 15:32:20 Referral None recorded . Procedures None recorded . Surgeries None recorded . Imaging None recorded . Medication Orders None recorded . Patient TargetsNo targets recorded. Patient Instructions Encounter Date Encounter Id Patient Instructions Last Modified By Organization Details Last Modified Time 02/11/2023 [id number] risk assessment* [email or web address] Not availabl e 02/11/2023 11:46:21 INFLUENZA VACCIN E Patient will get at local pharmacy/health department TD/TDAP Patient will get at local pharmacy/health department PNEUMONIA VACCINE Recommended at age 65 SHINGLES Patient will get at local pharmacy/health department PSA Ordered No screening necessary patient is up to date Not indicated until age 50 recommended COLORECTAL SCREENING No screening necessary patient is up to date DEPRESSION SCREENING History of depression BMI Overweight try to lose 10% of your body weight NUTRITION Heart Healthy Diet Recommendation of a 1500 caloric intake for weight loss is advised Diabetic Diet Renal Diet DASH Diet Continue healthy eating & exercise Eat Heart Healthy Diet PHYSICAL ACTIVITY Need more exercise/physical activity ALCOHOL USE No alcohol use TOBACCO USE non smoker LUNG CANCER SCREENING Non Smoker-not indicated SEXUALLY ACTIVE HEPATITIS C SCREENING Not indicated GLUCOSE SCREENING Ordered Not needed Known Diabetic recommende d LIPID SCREENING Ordered Not needed Diagnosis of Hyperlipidemia iveth mmended [email or web address] Not available 02/11/2023 11:30:27 Adult health examination risk assessment stable. Up-to-date on screening studies. Follow-up for hypertension -hyperlipidemia -obstructive sleep apnea bipolar illness. Will check blood work in the form of CBC, CMP, lipid, thyroid and PSA. Continue on current Rx recheck back in six months. Not available 02/11/2023 11:46:02 08/05/2023 [id number] Follow-up essent ial hypertension -hyperlipidemia -obstructive sleep apnea -bipolar by history. Will check a CMP and lipid panel. Is up-to-date otherwise on all testing. Continue on current Rx recheck back in six months.FDA recommendations of a influenza, RSV, COVID, pneumococcal immunizations strongly advised. Portions of the record may have been created with voice recognition software. Occasional wrong-word or s ound-a-like substitutions may have occurred due to the inherent limitations of voice recognition software. Read the chart carefully and recognize, using context, where substitutions have occurred. Not available 08/05/2023 11:14:28 02/09/2024 [id number] Follow-up hypertension, hyperlipidemia, bilateral carpal tunnel syndrome with recent right carpal tunnel repair. Bipolar disorder all clinically stable. Had blood work performed in August which looked good. Is due for a PSA. Does need a colonoscopy until next year. Will continue on current Rx and follow-up in six months. Next Appointment: 6 Months Approximate Date: 08/07/2024 Portions of the record may have been created with voice recognition software. Occasional wrong-word or s ound-a-like substitutions may have occurred due to the inherent limitations of voice recognition software. Read the chart carefully and recognize, using context, where substitutions have occurred. [email or web address] Not available 02/09/2024 16:44:01 08/16/2024 [id number] Follow-up for hypertension, hyperlipidemia, history of cerebrovascular accident and bipolar disorder all clinically stable. Check blood work in the form of CBC, CMP, lipid and thyroid. Continue on current Rx follow-up in six months Follow Up: 6 Months Approximate Date: 02/12/2025 Portions of the record may have been created with voice recognition software. Occasional wrong-word or s ound-a-like substitutions may have occurred due to the inherent limitations of voice recognition software. Read the chart carefully and recognize, using context, where substitutions have occurred. Created: Clarence Mortensen M.D. 08.16.2024 04:01 PM [email or web address] Not available 08/16/2024 17:01:02 Reason for Referral None Reported. Results Created Date Observation Date Name Description Value Unit Range Abnormal Flag Note LastModifiedBy Organization Detail LastModifiedTime 08/05/1908/05/2023 LIPID PANEL , STAND HELENA cholesterol, total 134 mg/dL <200 normal Not Available [facility] [address] [place], [address], 08/06/2023 00:39:36 08/05/19 24 08/05/2023 LIPID PANEL , STAND HELENA HDL cholesterol 31 mg/dL > or = 40 low Not Available [facility] [address] [place], [address], 08/06/2023 00:39:36 08/05/19 24 08/05/2023 LIPID PANEL , STAND HELENA triglyceride s 306 mg/dL <150 high If a non-f astin g speci men was colle cted, consi jin repea t trigl yceri de testi ng on a fasti ng speci men if clini geri indic ated. Marcelo holm et al. J. of Clin. Lipid ol. 2015; 9:129 -169. Not Available [facility] [address] [place], [place] [address], [address], 08/06/2023 00:39:36 08/05/19 24 08/05/2023 LIPID PANEL , STAND HELENA LDL-choleste rol 66 mg/dL _(marie c) normal Refer ence range : <100 Giulia able range <100 mg/dL for prima ry preve ntion ; <70 mg/dL for patie nts with CHD or diabe tic patie nts with > or = 2 CHD risk facto rs. LDL-C is now calcu lated using the Shana n-Hop kins calcu brandon n, which is a valid ated novel francisco j owen r accur acy than the Fried mildred equat ion in the estim ation of LDL-C . Shana presley SS et al. JESUS. 2013; 310(1 9): 2061- 2068 (http ://ed ucati on.[employer] baileePOPSUGAR. com/f aq/FA Q164) Not Available [email or web address] [address] [place], [address], 08/06/2023 00:39:36 08/05/19 24 08/05/2023 LIPID PANEL , STAND HELENA chol/HDLC ratio 4.3 (calc ) <5.0 normal Not Available [email or web address] [address] [place], [address], 08/06/2023 00:39:36 08/05/19 24 08/05/2023 LIPID PANEL , STAND HELENA non HDL cholesterol 103 mg/dL _(marie c) <130 normal For patie nts with diabe bigg plus 1 major ASCVD risk facto r, treat ing to a non-H DL-C goal of <100 mg/dL (LDL- C of <70 mg/dL ) is consi dered a thera peuti c optio n. Not Available [address], [address], 08/06/2023 00:39:36 08/05/19 24 08/05/2023 COMPR EHENS BEKAH METAB OLIC PANEL glucose 95 mg/dL 65-99 normal Fasti ng refer ence inter katelynn Not Available [address], [address], 08/06/2023 00:39:37 08/05/19 24 08/05/2023 COMPR EHENS BEKAH METAB OLIC PANEL urea nitrogen (BUN) 16 mg/dL 7-25 normal Not Available [address], [address], 08/06/2023 00:39:37 08/05/19 24 08/05/2023 COMPR EHENS BEKAH METAB OLIC PANEL creatinine 1.10 mg/dL 0.70-1 .30 normal Not Available [address], [address], 08/06/2023 00:39:37 08/05/19 24 08/05/2023 COMPR EHENS BEKAH METAB OLIC PANEL eGFR 79 mL/mi n/1.7 3m2 > or = 60 normal Not Available [address], [address], 08/06/2023 00:39:37 08/05/19 24 08/05/2023 COMPR EHENS BEKAH METAB OLIC PANEL BUN/creatini ne ratio SEE NOTE: (calc ) 6-22 Not Repor rich: BUN and Creat inine are withi n refer ence range . Not Available [address], [address], 08/06/2023 00:39:37 08/05/19 24 08/05/2023 COMPR EHENS BEKAH METAB OLIC PANEL sodium 140 mmol/ L 135-14 6 normal Not Available [address], [address], 08/06/2023 00:39:37 08/05/19 24 08/05/2023 COMPR EHENS BEKAH METAB OLIC PANEL potassium 4.4 mmol/ L 3.5-5. 3 normal Not Available [address], [address], 08/06/2023 00:39:37 08/05/19 24 08/05/2023 COMPR EHENS BEKAH METAB OLIC PANEL chloride 109 mmol/ L 98-110 normal Not Available [address], [address], 08/06/2023 00:39:37 08/05/19 24 08/05/2023 COMPR EHENS BEKAH METAB OLIC PANEL carbon dioxide 27 mmol/ L 20-32 normal Not Available [address], [address], 08/06/2023 00:39:37 08/05/19 24 08/05/2023 COMPR EHENS BEKAH METAB OLIC PANEL calcium 8.6 mg/dL 8.6-10 .3 normal Not Available [address], [address], 08/06/2023 00:39:37 08/05/19 24 08/05/2023 COMPR EHENS BEKAH METAB OLIC PANEL protein, total 6.0 g/dL 6.1-8. 1 low Not Available [address], [address], 08/06/2023 00:39:37 08/05/19 24 08/05/2023 COMPR EHENS BEKAH METAB OLIC PANEL albumin 4.1 g/dL 3.6-5. 1 normal Not Available [address], [address], 08/06/2023 00:39:37 08/05/19 24 08/05/2023 COMPR EHENS BEKAH METAB OLIC PANEL globulin 1.9 g/dL_ (calc ) 1.9-3. 7 normal Not Available [address], [address], 08/06/2023 00:39:37 08/05/19 24 08/05/2023 COMPR EHENS BEKAH METAB OLIC PANEL albumin/glob ulin ratio 2.2 (calc ) 1.0-2. 5 normal Not Available [address], [address], 08/06/2023 00:39:37 08/05/19 24 08/05/2023 COMPR EHENS BEKAH METAB OLIC PANEL bilirubin, total 0.5 mg/dL 0.2-1. 2 normal Not Available [address], [address], 08/06/2023 00:39:37 08/05/19 24 08/05/2023 COMPR EHENS BEKAH METAB OLIC PANEL alkaline phosphatase 88 U/L 35-144 normal Not Available [address], [address], 08/06/2023 00:39:37 08/05/19 24 08/05/2023 COMPR EHENS BEKAH METAB OLIC PANEL AST 21 U/L 10-35 normal Not Available [address], [address], 08/06/2023 00:39:37 08/05/19 24 08/05/2023 COMPR EHENS BEKAH METAB OLIC PANEL ALT 31 U/L 9-46 normal Not Available [address], [address], 08/06/2023 00:39:37 02/10/20 24 02/12/2024 PSA, TOTAL PSA, total 0.56 NG/mL < or = 4.00 normal The total PSA value from this assay syste m is stand ardiz ed again st the WHO stand helena. The test resul t will be appro ximat anthony 20% lower when noé red to the equim olar- stand ardiz ed total PSA (Hawley man Coult er). Noé rison of seria l PSA resul ts shoul d be inter prete d with this fact in mind. This test was perfo rmed using the Sieme ns chemi lumin escen t metho d. Value s obtai rajesh from diffe rent assay metho ds canno t be used inter marie eably . PSA level s, regar dless of value , shoul d not be inter prete d as absol wilbur evide nce of the prese nce or absen ce of disea se. Not Available [facility] [address], [place], [address], 02/12/2024 03:01:53 10/06/19 24 10/06/2023 elect romyo gram + nerve condu ction study No observ ation record ed. [email or web address] [place] [address] [address], [place], [address], 10/06/2023 16:33:04 12/01/19 24 10/06/2023 nerve condu ction study No observ ation record ed. [email or web address] [id number] Not Available 2023 12:37:15 Result Notes None recorded. Problems Name Problem SNOMED Code Status Onset Date Resolution Date Notes Provider Name and Address Organization Details Recorded Time Benign essential hypertens ion 0988465 Completed Not Available [facility] 3 05:58:51 Bipolar disorder 23464020 Active 2019 Not Available [facility] 3 05:58:51 Insomnia 395105142 Active Not Available [facility] 3 05:58:51 Anxiety disorder 698929319 Completed Not Available [facility] 3 05:58:52 Cerebrova scular accident 178780662 Active 2017 Not Available [facility] 3 05:58:52 Abnormal weight loss 781731592 Active Not Available [facility] 3 05:58:52 Pure hyperchol esterolem ia 552636641 Active Not Available [facility] 3 05:58:52 Disorder of prostate 20195013 Active 2021 Not Available [facility] 3 05:58:52 Ureteric stone 30113735 Active Not Available [facility] 3 05:58:52 Depressiv e disorder 28356710 Active Not Available [facility] 3 05:58:52 Hypertens bekah disorder 76485549 Completed 201708/11/2021 Not Available [facility] 3 05:58:52 Hand pain 47099452 Active Not Available [facility] 3 05:58:52 Closed fracture of base of metacarpa l bone other than first metacarpa l 09072595 Active Not Available [facility] 3 05:58:52 Essential hypertens ion 13756138 Active 2021 Not Available [facility] 3 05:58:52 Allergic rhinitis 11373589 Active Not Available [facility] 3 05:58:53 Obstructi ve sleep apnea syndrome 57001369 Active 2017 Not Available [facility] 3 05:58:53 Numbness of hand 550629699 Active 2023 Mirela Panchal null, [facility] 4 12:30:37 Bilateral carpal tunnel syndrome 00002029149 298804 Active 2023 Lois Hartman CMA null, [facility] 4 17:06:56 Herpes zoster 8085997 Active 2023 Bri Spence null, [facility] 4 18:00:44 Problem Notes None recorded. Medical Equipment None Reported. Medications Name Sig Start Date Stop Date Status Note LastModified by Organization Details LastModified Time atorvastati n 40 mg tablet Take 1 tablet every day by oral route. 08/05 completed Not Available Not Available Not Available atorvastati n 10 mg tablet TAKE 1 TABLET BY MOUTH EVERY DAY active Not Available Not Available No t Available liothyronin e 25 mcg tablet TAKE 1 TABLET BY MOUTH EVERY DAY 12/07 completed Not Available Not Available Not Available valacyclovi r 1 gram tablet TAKE 1 TABLET BY MOUTH THREE TIMES A DAY active Not Available Not Available No t Available lisinopril 20 mg tablet TAKE 1 TABLET BY MOUTH EVERY DAY FOR BLOOD PRESSURE 01/16 completed Not Available Not Available Not Available lithium carbonate ER 300 mg tablet,exte nded release TAKE 2 TABLETS BY MOUTH EVERY DAY IN THE MORNING active Not Available Not Available No t Available amlodipine 5 mg tablet TAKE 1 TABLET BY MOUTH EVERY DAY 2024 active Not Available Not Available Not Avai lable tramadol 50 mg tablet 50 MG ORALLY EVERY 6 HOURS NEEDED FOR PAIN active Not Available Not Available No t Available lithium carbonate ER 450 mg tablet,exte nded release TAKE 2 TABLETS EVERY DAY BY ORAL ROUTE AT BEDTIME FOR 30 DAYS, FOR MOOD SWINGS. active Not Available Not Available No t Available propranolol 10 mg tablet TAKE 1 TABLET BY MOUTH TWICE A DAY 08/11 completed Not Available Not Available Not Available citalopram 20 mg tablet TAKE 1&1/2 TABLETS BY MOUTH ONCE DAILY 12/07 completed Not Available Not Available Not Available buspirone 10 mg tablet TAKE 1 TABLET TWICE A DAY BY ORAL ROUTE WITH MEAL(S) FOR 30 DAYS, FOR ANXIETY. active Not Available Not Available No t Available liothyronin e 50 mcg tablet TAKE 1 TABLET BY MOUTH EVERY DAY 12/07 completed Not Available Not Available Not Available labetalol 300 mg tablet TAKE 1 TABLET BY MOUTH TWICE A DAY 2024 active Not Available Not Available Not Avai lable labetalol 100 mg tablet one twice a day active Not Available Not Available No t Available lithium carbonate 300 mg tablet TAKE 1 TABLET BY MOUTH AT BEDTIME 12/07 completed Not Available Not Available Not Available escitalopra m 20 mg tablet TAKE 1 TABLET BY MOUTH EVERY DAY AFTER MEALS active Not Available Not Available No t Available Abilify 20 mg tablet Take 1 tablet every day by oral route. 02/10 completed Not Available Not Available Not Available aripiprazol e 5 mg tablet TAKE 1 TABLET BY MOUTH EVERY DAY 02/10 completed Not Available Not Available Not Available bupropion HCl XL 300 mg 24 hr tablet, extended release TAKE 1 TABLET BY MOUTH EVERY DAY IN THE MORNING active Not Available Not Available No t Available bupropion HCl XL 150 mg 24 hr tablet, extended release TAKE 1 TABLET BY MOUTH EVERY DAY IN THE MORNING 02/10 completed Not Available Not Available Not Available aripiprazol e 2 mg tablet TAKE 1 TABLET BY MOUTH EVERY DAY 02/10 completed Not Available Not Available Not Available Suprep Bowel Prep Kit 17.5 gram-3.13 gram-1.6 gram oral solution USE DIRECTED 02/10 completed Not Available Not Available Not Available [facility] 180 mg tablet Take 1 tablet every day by oral route. 2013 active Not Available Not Available Not Avai lable ID NOW COVID-19 Test Kit TEST DIRECTED 02/09 completed Not Available Not Available Not Available Vitals Date Recorded Body height Body mass index (BMI) Body weight Heart rate Body temperature Oxygen saturation Oxygen saturation in Arterial blood by Pulse oximetry Systolic blood pressure Diastolic blood pressure Provider Name and Address Organization Details Last Updated DateTime 4 170.18 cm 28.3 kg/m2 63043.4 2 g 67 /min 97 [degF] 97 % 97 % 120 mm[Hg] 82 mm[Hg] Bri Spence [facility] 4 10:59:39 Date Recorded Body mass index (BMI) Body height Oxygen saturation Oxygen saturation in Arterial blood by Pulse oximetry Heart rate Respiratory rate Body temperature Body weight Systolic blood pressure Diastolic blood pressure Provider Name and Address Organization Details Last Updated DateTime 3 29.1 kg/m2 170.18 cm 97 % 97 % 66 /min 12 /min 97 [degF] 57693.1 8 g 122 mm[Hg] 64 mm[Hg] Not Available [facility] 3 05:56:45 Date Recorded Body height Body mass index (BMI) Body weight Heart rate Oxygen saturation Oxygen saturation in Arterial blood by Pulse oximetry Systolic blood pressure Diastolic blood pressure Provider Name and Address Organization Details Last Updated DateTime 5 170.18 cm 29.6 kg/m2 03289.9 6 g 60 /min 98 % 98 % 124 mm[Hg] 82 mm[Hg] Lois Hartman CMA [facility] 5 16:41:45 Date Recorded Body height Body mass index (BMI) Body weight Heart rate Body temperature Oxygen saturation Oxygen saturation in Arterial blood by Pulse oximetry Systolic blood pressure Diastolic blood pressure Provider Name and Address Organization Details Last Updated DateTime 4 170.18 cm 29 kg/m2 83448.5 9 g 70 /min 97.2 [degF] 95 % 95 % 120 mm[Hg] 86 mm[Hg] PATIENCE Jansen [facility] 4 16:23:27 Date Recorded Body height Body mass index (BMI) Body weight Body temperature Heart rate Oxygen saturation Oxygen saturation in Arterial blood by Pulse oximetry Systolic blood pressure Diastolic blood pressure Provider Name and Address Organization Details Last Updated DateTime 3 170.18 cm 28.5 kg/m2 79867.8 1 g 96.8 [degF] 62 /min 97 % 97 % 118 mm[Hg] 64 mm[Hg] Meseret Gupta MA [facility] 3 11:15:42 Social History Question Answer Notes LastModified by woohoo mobile marketingat ion Details LastModified Time In The 14 Days Before Symptom Onset, Have You Had Close Contact With A Laboratory-confirme d COVID-19 While That Case Was Ill? No [id number] Information not available 09/30/2022 In The 14 Days Before Symptom Onset, Have You Had Close Contact With A Person Who Is Under Investigation For COVID-19 While That Person Was Ill? No [id number] Information not available 09/30/2022 Have You Recently Traveled Abroad? No [id number] Information not available 09/30/2022 Sex: Unknown Functional Status None recorded. Mental Status None recorded. Family History Nothing Reported Notes:Mother Living 81 years old HTN VBI Type II DM Father Living 87 years old good health 2 Brothers 2 Living 2 Sisters 2 Living one with CA Breast Medical History Condition Response NERVE DISEASE N BLINDNESS N RHEUMATIC FEVER N KIDNEY STONES N BLADDER PROBLEMS N MRSA N OTHER # 1 N POLIO N LUNG DISEASE/DISORDER N COPD N RADIATION / CHEMOTHERAPY N Other # 2 N BLOOD DISEASES N EAR OR HEARING PROBLEMS N MUMPS N DEPRESSION (INCLUDING POST ) Y BOWEL PROBLEMS N STROKE/TIA N ULCERS N BENIGN PROSTATIC HYPERPLASIA N MEASLES N MYOCARDIAL INFARCTION N OBESITY N GERD/NAUSEA N ANEURYSM N URINARY/BLADDER/KIDNEY PROBLEMS N CORONARY ARTERY DISEASE (CAD) N ADDICTION CONCERNS N Impotence N ENDOMETRIOSIS N USE OF BLOOD THINNERS N SKIN PROBLEMS N GASTROINTESTINAL DISORDER N PERIPHERAL VASCULAR DISEASE N MUSCLE,JOINT OR BONE PROBLEMS N GASTROINTESTINAL BLEEDING N BLOOD CLOTS N ASTHMA N CATARACTS N ERECTILE DYSFUNCTION N VARICOSITIES N GI PROBLEMS N Low Testosterone N INFERTILITY N AIDS/HIV N CHEMOTHERAPY / RADIATION N LIVER DISEASE N MALE HYPOGONADISM N HYPERTENSION Y Deficiency N TOURETTE'S N ANXIETY DISORDER Y BLOOD TRANSFUSION N ANEMIA/BLOOD DISORDER N CHRONIC EAR INFECTIONS N BRONCHITIS N TUBERCULOSIS N GLAUCOMA N FOOT PROBLEM N DIVERTICULITIS N SLEEP APNEA Y CHICKENPOX N INFECTIOUS DISEASE N PROSTATE N HEART ARRHYTHMIA N INSOMNIA N HIGH CHOLESTEROL / HYPERLIPIDEMIA Y HYPERTHYROIDISM N EYE PROBLEMS N EDEMA N CHRONIC PAIN SYNDROME N HYPOTHYROIDISM N CONSTIPATION N CAROTID BLOCKAGE N BACK / NECK PROBLEMS N HAVE YOU BEEN HOSPITALIZED OR SEEN IN [facility] IN THE PAST YEAR ? N ATHEROSCLEROSIS N BREAST PROBLEMS N DIALYSIS N ECZEMA N OSTEOPOROSIS N ARTHRITIS N NO SIGNIFICANT PAST MEDICAL HISTORY N APPENDICITIS N DIABETES, TYPE N BAD TEETH N ENT N HEARTBURN / REFLUX N AUTISM SPECTRUM DISORDER (ASD) N HEPATITIS / LIVER DISEASE N GOUT N SLEEP DISORDER Y ALZHEIMER'S DISEASE N Brain Problems N HERPES N DEMENTIA N SEIZURES/EPILEPSY N HEADACHES/MIGRAINES N VASCULAR DISEASE N PACEMAKER N Blood Disorder N DIZZINESS N KIDNEY DISEASE N HEART DISEASE/HEART PROBLEMS N MULTIPLE SCLEROSIS N CARDIAC ARRHYTHMIA N CANCER: SPECIFY N Gall Stones N ATRIAL FIBRILLATION N PULMONARY EMBOLISM N AUTOIMMUNE DISEASE N Immunizations Vaccine Type Date Status Note Provider Nam e and Address Organization Details Recorded Time SARS-COV-2 (COVID-19) vaccine, UNSPECIFIED 1 completed Not Available [facility] 09/30/2022 06:04:48 SARS-COV-2 (COVID-19) vaccine, UNSPECIFIED 1 completed Not Available [facility] 09/30/2022 06:04:48 COVID-19, mRNA, LNP-S, PF, 30 mcg/0.3 mL dose 1 completed Not Available [facility] 09/30/2022 06:04:48 Past Encounters Encounter ID Performer Location Encounter Start Date Encounter Closed Date Diagnosis/Indication Diagnosis SNOMED-CT Code Diagnosis ICD10 Code Diagnosis Note [id number] Clarence Mortensen MD [facility] [address] [address] 02/10/2021 00:00:00 02/10/2021 11:23:04 [id number] Clarence Mortensen MD S[facility] [place] Internal Med [facility] [address] [place] [address] [address] 08/11/2021 00:00:00 08/11/2021 11:23:29 [id number] Clarence Mortensen MD S[facility] [place] [facility] Med [facility] [address] [place] [address] [address] 02/09/2022 00:00:00 02/09/2022 11:29:22 [id number] Clarence Mortensen MD S[facility] [place] Internal Med [place] [address] [place] [address] [address] [address] 08/10/2022 00:00:00 08/10/2022 11:37:20 [id number] Clarence Mortensen MD [facility] [place] Internal Med [facility] [address] [place] [address] [address] 02/11/2023 11:05:24 02/11/2023 11:51:53 Adult health examination [id number] Z00.00 Depression screening 171 631629 Z13.31 Essential hypertension 81862518 I10 Pure hypercholesterolemia 239344369 E78.00 Obstructiv e sleep apnea syndrome 47674063 G47.33 Bipolar disorder 1432840 4 F31.9 Disorder of prostate 302 45890 N42.9 [id number] Clarence Mortensen MD [facility] [place] Internal Med [place] [address] [place] [address] [address] 08/05/2023 10:43:47 08/05/2023 11:19:37 Essential hypertension 50063437 I10 Pure hypercholesterolemia 151298884 E78.00 Obstructiv e sleep apnea syndrome 70154798 G47.33 Bipolar disorder 4682865 4 F31.9 [id number] Clarence Mortensen MD [facility] [place] [address] [facility] [address] 02/09/2024 16:17:53 02/09/2024 16:48:52 Essential hypertension 35054560 I10 Pure hypercholesterolemia 754455999 E78.00 Bilateral carpal tunnel syndrome 8843171941 3282503 G56.03 Bipolar disorder 8418680 4 F31.9 Disorder of prostate 302 43047 N42.9 [id number] Clarence Mortensen MD [facility] Internal Med [facility] [address] [facility] [place] [address] 08/16/2024 16:38:23 08/16/2024 17:04:30 Essential hypertension 52496140 I10 Bipolar disorder 1585799 4 F31.9 Cerebrovas cular accident 923549647 I63.9 Pure hypercholesterolemia 000993267 E78.00 Health Concerns Section Related Observation LastModified by Organization Detai ls LastModified Time None Recorded Concern Status LastModified by Organization Details LastModified Time None Recorded Advance Directives Directive None Recorded Payers Encounter Date Sequence Insurance Name Policy Number Policy Stewart Covered Member ID Stewart Member ID Guarantor Name 02/11/2023 1 [facility] [id number] Camilo A Poiter [id number] Christchaseer A Poiter 08/05/2023 1 [facility] [id number] Christopher A Poiter [id number] Christopher A Poiter 02/09/2024 1 [facility] [id number] Christopher A Poiter [id number] Christopher A Poiter 08/16/2024 1 [facility] [id number] Christopher A Poiter [id number] [facility] Notes Date Note Type Note Provider Name and Address Organization Details Recorded Time 023 text/ht ml Patient Name: Camilo MobleyiterDate Of Service: January ( 02.11.2023 ): 1965 Age: 57 There has been approximately a 4 lb weight loss since 08/10/2022. This represents approximately a 2.2% change in weight. Weight change attributable to lifestyle changes. Vital Signs:Blood Pressure: Sitting Rt. Arm 118/64Pulse: Sitting 62 /min and RegularRespirations: 12Height 67 in or 1.7 mWeight 182 lb or 82.6 kgBMI 28.5Temperature: 96.8 F or 36.0 CPulse Oximetry: 97 % at rest on no oxygen Chief Complaint: Addressed in HPI Problems or conditions discussed in the HPI were the only ones reviewed during the encounter.Only social and family history addressed in the HPI were reviewed during this encounter. Attendant(s): None Constitutional and Systemic Symptoms: none Medication Reconciliation: from medication list. History of Present Illness #1. History of bipolar illness currently taking the Wellbutrin -escitalopram and lithium carbonate doing well. Is followed on a regular basis by Psychiatry.: #2. Essential Hypertension: Stage: Stage I Interval Neurological Complaints no headaches, dizziness, weakness, visual changes, ataxia, aphasia and apraxia. No shortness of breath, orthopnea or cardiovascular symptoms. No other symptoms related to end organ damage. Pressure has been under excellent control. Currently normal. No other end organ symptoms or findings. Therapy reviewed regarding management of hypertension and includes salt restriction and Lisinopril and Normodyne. #3. Type II Hypercholesterolaemia: Currently taking medication and tolerating well. No interval complaints of any muscle pain or arthralgia. No significant liver changes with medications. Last lipid panel: fair control. Therapy reviewed regarding treatment of cholesterol management and include diet and Lipitor. #4. Sleep Apnea: Type: WILIAN Current doing well. No significant daytime somnolence or problems performing daily chores. Using CPAP on nightly basis . Overall has shown considerable improvement.[place] Sleepiness ScaleSitting and ReadinWatching TV: 1Sitting Inactive in a Public Place: 0Passenger in a Car: 1Lying Down in Afternoon: 1Sitting and Talking to someone: 0Sitting quietly after lunch: 0In a car while stopped or drivinScore Interpretation: 0-7 No evidence of abnormally sleepyMedication List Reviewed and Reconciled 02/11/2023Wellbutrin Xl 300 MG (TABLET, EXTENDED RELEASE - ORAL) Once DailyEscitalopram 20 MG (CAPSULE - ORAL) One DailyNormodyne 300 MG (TABLET - ORAL) One BidAllegra 180 MG (TABLET - ORAL) One DailyLipitor 10 MG (TABLET - ORAL) Once DailyLisinopril 20 MG (TABLET - ORAL) One Daily By Mouth For Blood PressureLithium Carbonate 300 MG (CAPSULE - ORAL) BidCpap NightlyVaccination and [id number] CovUpson Regional Medical CenterSurgical HistoryTonsillectomyPreventative Testing Confirmed by Our Mellmkh9702/09/2022 ALBUMIN 4.4 G/DL02/09/2022 PSA 0.65 NG/ML04/11/2020 COLONOSCOPY (5 YEARS) 04/11/2025Social HistorySOCIAL HISTORY:Does not smoke cigarettes. Drinking Hx: < 6 cans ofsoft drinks per day.Exercise: WeeklySexual Hx: Sexually ActiveOccupation: TeacherFamily HistoryFAMILY HISTORY:Mother Living 81 years old HTN VBI Type II DMFather Living 87 years old good health2 Brothers 2 Living2 Sisters 2 Living one with [place] Breast Clarence Mortensen MD [address] [facility] [address], [place], [address], [facility] 02/11/2023 11:46:25 024 text/ht ml Patient Name: Camilo Oneill Of Service: August ( 08.05.2023 ): 1965 Age: 57 Chief Complaint: Addressed in HPI Problems or conditions discussed in the HPI were the only ones reviewed during the encounter.Only social and family history addressed in the HPI were reviewed during this encounter. Attendant(s): NoneConstitutional and Systemic Symptoms:none Medication Reconciliation: from medication list. History of Present Illness #1. Essential Hypertension: Stage: Stage I Interval Neurological Complaints no headaches, dizziness, weakness, visual changes, ataxia, aphasia and apraxia. No shortness of breath, orthopnea or cardiovascular symptoms. No other symptoms related to end organ damage. Pressure has been under excellent control. Currently normal. No other end organ symptoms or findings. Therapy reviewed regarding management of hypertension and includes salt restriction and Lisinopril and Normodyne. #2. Type II Hypercholesterolaemia: Currently taking medication and tolerating well. No interval complaints of any muscle pain or arthralgia. No significant liver changes with medications. Last lipid panel: excellent control. Therapy reviewed regarding treatment of cholesterol management and include diet and Lipitor. #3. Sleep Apnea: Type: WILIAN Current doing well. No significant daytime somnolence or problems performing daily chores. Using CPAP on nightly basis . Overall has shown considerable improvement.[place] Sleepiness ScaleSitting and ReadinWatching TV: 1Sitting Inactive in a Public Place: 1Passenger in a Car: 0Lying Down in Afternoon: 0Sitting and Talking to someone: 0Sitting quietly after lunch: 1In a car while stopped or drivinScore Interpretation: 0-7 No evidence of abnormally sleepy #4. Hx of bipolar illness currently on Type II. Type followed No recent manic or hypomanic episodes and is [ Followed by Psychiatrist?*, followed, not followed ] by a psychiatrist.Medication List Reviewed and Reconciled 08/05/2023Wellbutrin Xl 300 MG (TABLET, EXTENDED RELEASE - ORAL) Once DailyEscitalopram 20 MG (CAPSULE - ORAL) One DailyNormodyne 300 MG (TABLET - ORAL) One BidAllegra 180 MG (TABLET - ORAL) One DailyLipitor 10 MG (TABLET - ORAL) Once DailyLisinopril 20 MG (TABLET - ORAL) One Daily By Mouth For Blood PressureLithium Carbonate 300 MG (CAPSULE - ORAL) BidCpap NightlyVaccination and [id number] Covid VolanceSurgical HistoryTonsillectomyPreventative Testing Confirmed by Our Ebyiwbe4902/11/2023 PSA02/09/2022 ALBUMIN 4.4 G/DL N004/11/2020 COLONOSCOPY (5 YEARS) 04/11/2025Social HistorySOCIAL HISTORY:Does not smoke cigarettes. Drinking Hx: < 6 cans ofsoft drinks per day.Exercise: WeeklySexual Hx: Sexually ActiveOccupation: TeacherFamily HistoryFAMILY HISTORY:Mother Living 81 years old HTN VBI Type II DMFather Living 87 years old good health2 Brothers 2 Living2 Sisters 2 Living one with [place] Breast Clarence Mortensen MD [address] [facility], [facility] [address], [place], [address], [facility] Nujira 08/05/2023 11:14:58 024 text/ht ml Patient Name: Camilo Oneill Of Service: Wednesday ( 02.09.2024 ): 1965 Age: 58 There has been approximately a 3 lb weight gain since 02/11/2023. This represents approximately a 1.6% change in weight. Weight change attributable to lifestyle changes. Vital Signs:Blood Pressure: Sitting Rt. Arm 120/86Pulse: Sitting 70 /min and RegularRespiratory Rate: 14Height 67 in or 1.7 mWeight 185 lb or 83.9 kgBMI 29.0Temperature: 97.2 F or 36.2 CPulse Oximetry: 95 % at rest on no oxygen Chief Complaint: Addressed in HPI Problems or conditions discussed in the HPI were the only ones reviewed during the encounter.Only social and family history addressed in the HPI were reviewed during this encounter. Attendant(s): NoneConstitutional and Systemic Symptoms:none Medication Reconciliation: from medication list. History of Present Illness #1. Essential Hypertension: Stage: Stage I Interval Neurological Complaints no headaches, dizziness, weakness, visual changes, ataxia and aphasia. No shortness of breath, orthopnea or cardiovascular symptoms. No other symptoms related to end organ damage. Pressure has been under excellent control. Currently normal. No other end organ symptoms or findings. Therapy reviewed regarding management of hypertension and includes salt restriction and Amlodipine and Normodyne. #2. Type II Hypercholesterolaemia: Currently taking medication and tolerating well. No interval complaints of any muscle pain or arthralgia. No significant liver changes with medications. Last lipid panel: fair control. Therapy reviewed regarding treatment of cholesterol management and include diet and Lipitor. #3. Hx consistent with carpal tunnel syndrome involving the both hands. There is nocturnal numbness and problems noticed when driving or similar activities that require extension of the wrist. Having some difficulty grasping objects but no over weakness. There is no hypothenar atrophy. #4. Hx of bipolar illness currently on [place] Carbonate and Wellbutrin Xl. Type Type II No recent manic or hypomanic episodes and is followed by a psychiatrist. Active Medication ListWellbutrin Xl 300 MG (TABLET, EXTENDED RELEASE - ORAL) Once DailyEscitalopram 20 MG (CAPSULE - ORAL) One DailyNormodyne 300 MG (TABLET - ORAL) One BidAllegra 180 MG (TABLET - ORAL) One DailyLipitor 10 MG (TABLET - ORAL) Once DailyAmlodipine 5 MG TABLET QdLithium Carbonate 300 MG (CAPSULE - ORAL) BidCpap Nightly Vaccination and [id number] [facility] Uyyursw8104-29 Rt. Carpal Ltozew8364-55 Tonsillectomy Preventative Xtkvbem4008/05/2023 ALBUMIN 4.1 G/DL N002/11/2023 PSA04/11/2020 COLONOSCOPY (5 YEARS) 04/11/2025 Social HistorySOCIAL HISTORY:Does not smoke cigarettes. Drinking Hx: < 6 cans ofsoft drinks per day.Exercise: WeeklySexual Hx: Sexually ActiveOccupation: Teacher Family HistoryFAMILY HISTORY:Mother Living 81 years old HTN VBI Type II DMFather Living 87 years old good health2 Brothers 2 Living2 Sisters 2 Living one with [place] Breast Clarence Mortensen MD [address] [facility], [address], [place], [address], [facility] [employer] 02/09/2024 16:44:23 025 text/ht ml Patient Name: Camilo Oneill Of Service: Wednesday ( 08.16.2024 ): 1965 Age: 58 There has been approximately a 2 lb weight gain since 02/09/2024. This represents approximately a 1.1% change in weight. Weight change attributable to lifestyle changes. Vital Signs:Blood Pressure: Sitting Rt. Arm 124/82Pulse: Sitting 60 /min and RegularRespiratory Rate: 16Height 67 in or 1.7 mWeight 187 lb or 84.8 kgBMI 29.3Pulse Oximetry: 98 % at rest on no oxygen Chief Complaint: Addressed in HPI Problems or conditions discussed in the HPI were the only ones reviewed during the encounter.Only social and family history addressed in the HPI were reviewed during this encounter. Attendant(s): NoneConstitutional and Systemic Symptoms:none Medication Reconciliation: from medication list. History of Present Illness #1. Essential Hypertension: Stage: Stage I Interval Neurological Complaints no headaches, dizziness, weakness, visual changes, ataxia, aphasia and apraxia. No shortness of breath, orthopnea or cardiovascular symptoms. No other symptoms related to end organ damage. Pressure has been under excellent control. Currently normal. No other end organ symptoms or findings. Therapy reviewed regarding management of hypertension and includes Amlodipine and Normodyne. #2. Type II Hypercholesterolaemia: Currently taking medication and tolerating well. No interval complaints of any muscle pain or arthralgia. No significant liver changes with medications. Last lipid panel: fair control. Therapy reviewed regarding treatment of cholesterol management and include diet and Lipitor. #3. Hx of CVA. No new or progression of any neurological defects. No additional or progression of any headaches, dizziness weakness, aphasia, ataxia, visual or other neurological symptoms. Current medications: ASA #4. Hx of bipolar illness currently on Escitalopram, [place] Carbonate and Wellbutrin Xl. Type Type II No recent manic or hypomanic episodes and is followed by a psychiatrist. Active Medication ListWellbutrin Xl 300 MG (TABLET, EXTENDED RELEASE - ORAL) Once DailyEscitalopram 20 MG (CAPSULE - ORAL) One DailyNormodyne 300 MG (TABLET - ORAL) One BidAllegra 180 MG (TABLET - ORAL) One DailyLipitor 10 MG (TABLET - ORAL) Once DailyAmlodipine 5 MG TABLET QdLithium Carbonate 300 MG (CAPSULE - ORAL) BidCpap Nightly Vaccination and Immunization(X) 2020- [facility] Befgvcj1515-24 Lt. Carpal Fekpfz4468-05 Rt. Carpal Goupcu4037-70 Tonsillectomy Preventative Testing( ) 02/10/2024 PSA 0.56 NG/ML N 02/09/2025( ) 08/05/2023 Albumin 4.1 G/DL N( ) 04/11/2020 Colonoscopy (5 Years) 04/11/2025 Social HistorySOCIAL HISTORY:Does not smoke cigarettes. Drinking Hx: < 6 cans ofsoft drinks per day.Exercise: WeeklySexual Hx: Sexually ActiveOccupation: Teacher Family HistoryFAMILY HISTORY:Mother Living 81 years old HTN VBI Type II DMFather Living 87 years old good health2 Brothers 2 Living2 Sisters 2 Living one with [place] Breast Clarence Mortensen MD [address] [facility], [facility] [address], [place], [address], [facility] 08/16/2024 17:01:23
--- OUTSIDE RECORDS SUMMARY | 2025-01-02 06:21 | XMS_ITS | CONTINUITY OF CARE DOCUMENT ---
Author Name ethan long Address Unknown Organization [facility] Address [address] [address] [place] [address] Phone [phone] Care Team Providers Care Wire Bound Box Machine Operator Name Role Phone ethan long Unavailable Unavailable
--- OUTSIDE RECORDS SUMMARY | 2025-01-02 06:21 | XMS_ITS | Clinical Summary ---
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
--- OUTSIDE RECORDS SUMMARY | 2025-01-02 06:21 | XMS_ITS | Referral Summary ---
Author Organization [facility] Address [address] [place] [address] Care Team Providers Care Prepared Foods Service Team Member Name Role Phone Clarence Mortensen MD Primary Care Provider Yuniel Santiago MD, Lewis Unavailable [phone]- [phone] Allergies Active Allergy Reactions Criticality Noted Date [...] Plan of Treatment Not on file Insurance [facility] CHOICE PLUS [facility] CHOICE PLUS Care Teams Prepared Foods Service Team Member Relationship Specialty Start Date End Date Clarence Mortensen MD [address] [facility] [address] [address] PCP - General Internal Medicine 03/17/21 Lewis Brice Jr., MD [address] [facility] [address] [place] [address] Medical Oncologist/Warehouse Driver Medical Oncology 03/27/21
--- OUTSIDE RECORDS SUMMARY | 2025-01-02 06:21 | XMS_ITS | Clinical Summary ---
Author Organization [facility] Address [address] [place] [address] Care Team Providers Care Purchasing Coordinator Name Role Phone Clarence Mortensen MD Primary Care Provider Yuniel Santiago MD, Lewis Unavailable [phone]- [phone] Allergies Active Allergy Reactions Criticality Noted Date [...] to complete this topic Insurance CHOICE PLUS [facility] CHOICE PLUS Care Teams Purchasing Coordinator Relationship Specialty Start Date End Date Clarence Mortensen MD [address] [facility] [address] [address] PCP - General Internal Medicine 03/17/21 Lewis Brice Jr., MD [address] [facility] [place] [address] Medical Oncologist/Theater Set Production Designer Medical Oncology 03/27/21
[2025-01-02 07:36] LABS: Basophils Percent Auto 0.4 % (0.2-1.2); Eosinophils Absolute Auto 0.3 K/mm3 (0-0.3); Eosinophils Percent Auto 5.9 % (0-4.4); Hematocrit 42.5 % (42.0-52.0); Hemoglobin 14.3 g/dL (14.0-18.0); Immature Granulocyte Absolute 0.03 K/mm3 (0.00-0.031); Immature Granulocyte Percent A 0.6 % (0-0.5); Immature Platelet Fraction Pct 1.2 % (0.9-11.2); Lymphocytes Absolute Auto 0.29 K/mm3 (0.9-3.2); Lymphocytes Percent Auto 5.6 % (18.3-44.2); Mean Corpuscular HGB Conc 33.6 g/dl (32-36); Mean Corpuscular Hemoglobin 29.7 pg (26-34); Mean Corpuscular Volume 88.2 fl (80-100); Mean Platelet Volume 8.8 fl (7.4-10.4); Monocytes Absolute Auto 0.5 K/mm3 (0.1-0.6); Monocytes Percent Auto 9.8 % (2.6-8.5); Neutrophils Absolute Auto 4.1 K/mm3 (1.3-6.7); Neutrophils Percent Auto 77.7 % (45.5-73.1); Platelet Count Result 119 k/mm3 (150-375); Red Blood Count 4.82 M/mm3 (4.6-6.20); Red Cell Distribution Width 12.1 % (11.5-14.5); White Blood Count 5.2 K/mm3 (4.5-10.0)
--- NOTE | 2025-01-02 07:39 | ED.EYEPROB ---
HPI - Eye Problem General Chief complaint: Eye Problems Stated complaint: sudden onset of black floaters in R eye Time Seen by Provider: 01/02/25 05:10 History of Present Illness HPI Narrative: This morning patient suddenly started having black spots in his right eye, they have been increasing and now he just has a lot of black dots whirling is in his right field of vision. Has been worsening. No eye pain. No headache. Related Data Home Medications ?Medication ?Instructions ?Recorded ?Confirmed ?Last Taken ?Type atorvastatin 10 mg tablet 10 mg PO HS 04/05/20 04/26/24 Unknown History escitalopram oxalate 20 mg tablet 20 mg PO DAILY 04/05/20 04/26/24 04/26/24 06:00 History fexofenadine-pseudoephedrine ER 1 tablet PO QAM 04/05/20 04/26/24 Unknown History 180 mg-240 mg tablet,ext.release 24 hr (Alicia-D 24 Hour) labetalol 300 mg tablet 300 mg PO BID 04/05/20 04/26/24 04/26/24 06:00 History lithium carbonate 300 mg tablet 600 mg PO HS 04/05/20 04/26/24 Unknown History amlodipine 5 mg tablet 5 mg PO DAILY 04/21/24 04/26/24 04/26/24 06:00 History bupropion HCl 300 mg 24 hr tablet, 300 mg PO DAILY 04/21/24 04/26/24 04/26/24 06:00 History extended release Allergies Allergy/AdvReac Type Severity Reaction Status Date / Time coconut Allergy Swelling Verified 01/02/25 05:00 of Lip/Tongue/Throat Review of Systems Review of Systems: All systems reviewed & are unremarkable except as noted in HPI and below PMFSH Past Medical History Medical History CVA (cerebral vascular accident) Depression Dyslipidemia Fracture of finger of right hand Hypertension Sleep apnea Surgical History Surgical History History of carpal tunnel surgery Social History Social History Smoking status: Never smoker Alcohol intake: never Substance use: never Living arrangements: with family Spiritual care concerns: No Exam Narrative: EXAMINATION OF ORGAN SYSTEMS/BODY AREAS: Constitutional: Vital signs per nursing GENERAL:[No acute distress, non-toxic appearing.] HEAD: Normal with no signs of head trauma. EYES: EOMI, conjunctiva normal, PERRL, visual jolley intact ENT: Hearing grossly intact LUNGS: Nonlabored breathing. HEART: [Regular rate and rhythm] ABD: [Soft], [nontender to palpation] EXT: Normal range of motion SKIN: [No rashes or lesions.] NEURO: [Alert and oriented x 3. No gross focal sensory or strength deficits.] PSYCH: Normal affect Course Vital Signs Vital signs: Vital Signs Temperature 98.7 F 01/02/25 05:09 Pulse Rate 77 01/02/25 05:09 Respiratory Rate 16 01/02/25 05:09 Blood Pressure 156/96 H 01/02/25 05:09 Pulse Oximetry 95 01/02/25 05:09 Temperature 98.7 F 01/02/25 05:09 Pulse Rate 77 01/02/25 05:09 Respiratory Rate 16 01/02/25 05:09 Blood Pressure 156/96 H 01/02/25 05:09 Pulse Oximetry 95 01/02/25 05:09 MDM - Eye Problem MDM Narrative Medical decision making narrative: 59M p/w sudden floaters in R eye, now worsening. VA 20/30 in R eye, 20/15 in L eye. PERRL, EOMI, given his symptoms I am highly suspicious of vitreous hemorrhage vs detachment. D/w pt plan for tfr for urgent ophtho eval. Called [facility]; awaiting callback. Called [facility]; ophtho Dr Lopez returned call, agrees likely vitreous hemorrhage requiring urgent eval, recommends tfr ER to ER to [facility]. D/w Dr Lewis ER [facility] who agrees to accept patient. Pt and fam updated and agreeable to plan. Lab Data 01/02/25 07:17 01/02/25 07:17 Labs: Lab Results 01/02/25 Range/Units 07:17 WBC 5.2 (4.5-10.0) K/mm3 RBC 4.82 (4.6-6.20) M/mm3 Hgb 14.3 (14.0-18.0) g/dL Hct 42.5 (42.0-52.0) % MCV 88.2 (80-100) fl MCH 29.7 (26-34) pg MCHC 33.6 (32-36) g/dl RDW 12.1 (11.5-14.5) % Plt Count 119 L (150-375) k/mm3 MPV 8.8 (7.4-10.4) fl Immature Gran % (Auto) 0.6 H (0-0.5) % Neut % (Auto) 77.7 H (45.5-73.1) % Lymph % (Auto) 5.6 L (18.3-44.2) % Bureau % (Auto) 9.8 H (2.6-8.5) % Eos % (Auto) 5.9 H (0-4.4) % Baso % (Auto) 0.4 (0.2-1.2) % Lymph # (Auto) 0.29 L (0.9-3.2) K/mm3 Bureau # (Auto) 0.5 (0.1-0.6) K/mm3 Eos # (Auto) 0.3 (0-0.3) K/mm3 Baso # (Auto) 0.0 (0.0-0.1) K/mm3 Abs Immat Gran (auto) 0.03 (0.00-0.031) K/mm3 Absolute Neuts (auto) 4.1 (1.3-6.7) K/mm3 Absolute Nucleated RBC 0.000 (0.0-0.012) K/mm3 Nucleated RBC % 0.0 (0.0-0.2) % % Immature Plt Fraction 1.2 (0.9-11.2) % Sodium 140 (137-145) mmol/L Potassium 4.2 (3.4-5.0) mmol/L Chloride 111 H (98-107) mmol/L Carbon Dioxide 23 (22-30) mmol/L Anion Gap 6 (4-12) mmol/L BUN 11 (9-20) mg/dL Creatinine 1.09 (0.7-1.3) mg/dL Estim Creat Clear Calc 68 ml/min Estimated GFR > 60 (59 - ) Glucose 102 (65-110) mg/dL Calcium 9.2 (8.4-10.2) mg/dL Total Bilirubin 0.9 (0.2-1.3) mg/dL AST 33 (17-59) U/L ALT 45 (6-50) U/L Alkaline Phosphatase 88 (38-126) U/L Total Protein 7.0 (6.3-8.2) g/dL Albumin 4.1 (3.5-5.1) g/dL Critical Care Time Critical Care Time Critical Care Time: Yes Total Critical Care Time: 31 Discharge Plan Discharge Clinical Impression: Visual floaters Patient Disposition: Acute Care Hospital Condition: Serious Patient Language: Indonesian Prescriptions: No Action amlodipine 5 mg tablet 5 mg PO DAILY bupropion HCl 300 mg tablet extended release 24 hr 300 mg PO DAILY atorvastatin 10 mg tablet 10 mg PO HS labetalol 300 mg tablet 300 mg PO BID lithium carbonate 300 mg tablet 600 mg PO HS escitalopram oxalate 20 mg tablet 20 mg PO DAILY fexofenadine-pseudoephedrine [Alicia-D 24 Hour] 180-240 mg Tablet Extended Release 24 Hr 1 tablet PO QAM Follow-up/Referrals: Festus,Clarence Manley MD [Primary Care Provider] -
[2025-01-02 07:46] LABS: Alanine Aminotransferase 45 U/L (6-50); Albumin Level 4.1 g/dL (3.5-5.1); Alkaline Phosphatase 88 U/L (38-126); Anion Gap 6 mmol/L (4-12); Aspartate Amino Transferase 33 U/L (17-59); Bilirubin,Total 0.9 mg/dL (0.2-1.3); Blood Urea Nitrogen 11 mg/dL (9-20); Calcium 9.2 mg/dL (8.4-10.2); Carbon Dioxide 23 mmol/L (22-30); Chloride 111 mmol/L (98-107); Estimated CRCL calculation 68 ml/min; Estimated Glomerular Filt Rate > 60; Glucose 102 mg/dL (65-110); Potassium 4.2 mmol/L (3.4-5.0); Sodium 140 mmol/L (137-145)
== END 2025-01-02 08:44 | disposition short-term general hospital (02) ==
PROVIDERS: Emergency Provider Emergency Medicine; PCP Internal Medicine
DX: H43.399 Other vitreous opacities, unspecified eye (principal)
CPT/HCPCS: 36415; 80053; 85025; 85055; 99285